=== PATIENT | female | born 1955 | race Caucasian/White ===

== ENCOUNTER 2016-10-27 16:35 | Emergency (ER) | payer OTHER, MEDICAID ==
[~2016-10-27] VITALS: Ht 167.6 cm; Wt 81.6 kg
[~2016-10-27 16:35] MED LIST: CITA10SO4 PO; DONETAB6 PO; GABA-497 PO; GLYB2.5T76 PO; ISOS10TA2 PO; LIS5T GT; PANT1INJ3 IV; PEN400T PO; PHE100C PO; RISP4TAB53 PO; SIMV-8 PO; TAMO20TA5 PO
[2016-10-27 16:43] VITALS: BP 140/76
[2016-10-27 17:44] LABS: Basophils # (auto) 0.1 uL; Basophils % (auto) 0.5 % (0.0-2.0); Eosinophils # (auto) 0.3 uL; Eosinophils % (auto) 2.3 % (0.0-7.0); Hematocrit 44.6 % (36.0-46.0); Hemoglobin 14.6 g/dL (12.2-16.2); Mean Corpuscular Hemoglobin 28.4 pg (28.0-32.0); Mean Corpuscular Hgb Conc. 32.8 g/dL (32.0-36.0); Mean Corpuscular Volume 86.5 fL (80.0-100.0); Mean Platelet Volume 8.8 fL (7.4-10.4); Monocytes # (auto) 0.8 uL; Monocytes % (auto) 6.6 % (0.0-12.0); Neutrophils # (auto) 8.3 uL; Neutrophils % (auto) 66.6 % (37.0-80.0); Platelet Count (auto) 211 10^3/uL (140-450); Red Cell Distribution Width 15.5 % (11.6-16.0); White Blood Cell 12.5 10^3/uL (4.4-10.8)
[2016-10-27 18:08] LABS: Albumin 3.8 g/dL (3.4-5.0); Alkaline Phosphatase 122 U/L (45-117); Anion Gap 7 (5-15); Aspartate Aminotransferase 23 U/L (15-37); BUN/Creatinine Ratio 18.2; Bilirubin, Total 0.3 mg/dL (0.2-1.0); Blood Urea Nitrogen 16 mg/dL (7-18); Calcium 9.3 mg/dL (8.5-10.1); Carbon Dioxide 27 mmol/L (21-32); Chloride 103 mmol/L (98-107); GFR African American 85 mL/min; GFR Non-African American 70 mL/min; Glucose 90 mg/dL (74-106); Magnesium 2.2 mg/dL (1.6-2.6); Sodium 137 mmol/L (136-145); Total Protein 7.7 g/dL (6.4-8.2)
== END 2016-10-27 23:24 | disposition left against medical advice (07) ==
LOC: EDBD 16:35 → ER 16:42
DX: R53.1 Weakness (principal); R55 Syncope and collapse; Z53.21 Procedure and treatment not carried out due to patient leaving prior to being seen by health care provider
CPT/HCPCS: 36415; 80053; 83735; 84484; 85025; 93005

== ENCOUNTER 2017-05-04 19:05 | Emergency (ER) | payer OTHER, MEDICAID ==
[~2017-05-04] VITALS: Ht 162.6 cm; Wt 92.1 kg
[~2017-05-04 19:05] MED LIST changes: -GLYB2.5T76 PO; +GLYB2.5T8 PO
[2017-05-04 19:10] VITALS: BP 147/99
== END 2017-05-05 05:00 | disposition left against medical advice (07) ==
LOC: EDBD 19:05 → ER 19:11
DX: R07.9 Chest pain, unspecified (principal); Z53.21 Procedure and treatment not carried out due to patient leaving prior to being seen by health care provider